=== PATIENT | female | born 1945 | race Two or more races ===

== ENCOUNTER 2016-04-28 06:41 | Emergency (ER) | payer MEDICARE, OTHER ==
[~2016-04-28] VITALS: Ht 162.6 cm; Wt 90.9 kg
[~2016-04-28 06:41] MED LIST: CIPR-198 PO
[2016-04-28 06:44] VITALS: BP 113/73; PULSE 65; RESP 17; O2SAT 95
--- NOTE | 2016-04-28 07:01 | ED.REPORT ---
HPI-General Illness Date of Service Apr 28, 2016 ED Provider: Darnell Zavala MD A 70 year old female presents to the ED complaining of right leg pain that began 3 days ago. Patient describes the pain as "burning". She denies any similar previous episode of pain. Patient was recently diagnosed with influenza 2 days ago and has been taking Tamiflu. Patient recently flew to [place] one week ago. She denies any recent injury, long periods of rest or history of blood clots. Her flu symptoms have improved. She denies any nausea, chest pain, back pain or SOB. Nursing Notes Stated Complaint: RIGHT LEG PAIN Chief Complaint: General Complaint Nursing Notes Reviewed: Yes Allergies: Coded Allergies: No Known Allergies (Unverified Allergy, Unknown, 12/05/13) Scheduled Ciprofloxacin (Ciprofloxacin) 500 Mg Tablet 500 MG PO BID Scheduled PRN Ibuprofen (Ibuprofen) 600 Mg Tablet 600 MG PO QID PRN PRN For Pain General Time Seen by MD: 06:57 Chief Complaint Other (Right leg pain) Hx Obtained From: Patient Arrived By: Walk-in Sudden in Onset?: No Onset Occurred: 3 days ago Symptom Duration: Since onset Location: : Thigh right Quality: Burning Radiation: : Does not radiate Severity: Current: Moderate Severity: Maximum: Moderate Associated with: Denies: Abdominal pain, Chest pain, Nausea, Shortness of breath Pertinent Negative: Pt denies other symptoms Recent Healthcare: No recent hospitalization, Recent doctor visit Past Medical History Past Medical History Pyelonephritis; otherwise healthy Past Surgical History Hysterectomy Smoking History Never Smoker Social History Alcohol Use: Denies alcohol use Other Social History: Good social support, Local resident Ambulatory Status Independent Review of Systems Full Review of Systems Constitutional: Denies: Chills, Fever Respiratory: Denies: Non-productive cough, Shortness of breath Cardiovascular: Denies: Chest pain GI: Denies: Abdominal pain, Nausea, Vomiting Musculoskeletal: Reports: Extremity pain (Right thigh pain), Denies: Back pain Neurologic: Denies: Change LOC Complete sys rev & neg: except as marked. Physical Exam Vital Signs Vital Signs Date Time Temp Pulse Resp B/P Pulse Ox O2 Delivery O2 Flow Rate FiO2 04/28/16 06:44 36.1 65 17 113/73 95 Room Air Initial VS: Reviewed Head / Eyes: Atraumatic, Normocephalic, PERRL Skin: Warm, Dry, No cyanosis Neurologic: Alert, Oriented, Nonfocal Psychiatric: Mood/affect normal, Behavior normal, Normal thought content General/Constitutional: Awake, Alert Respiratory / Chest: Atraumatic, Breath sounds NL, Breath sounds = bilat Cardiovascular: Heart rate NL, Regular rhythm, Heart sounds NL, No murmurs Abdomen: Atraumatic, Soft Back: Atraumatic, Inspection NL, Non-tender Upper Extremities Upper Extremity / MS: Atraumatic, Inspection NL, Neurologic intact, Vascular intact Lower Extremity / Pelvis / MS: Atraumatic, Neurologic intact, Vascular intact Right Thigh: Positive: Tenderness present... (Tender over right lateral thigh ) LOWER EXTREMITITES: Questionable positive straight leg test on the right Interpretation & Diagnostics US LEG Read by Radiology IMPRESSION: No sonographic evidence for right lower extremity deep venous thrombosis. Dictated by: Rodri Carballo M.D. on 04/28/2016 at 9:08 Lab Results Interpretation Test 04/28/16 09:45 Hold Urine Received (Received) Re-Eval/Medical Decision Med Decision/Clinical Course 70 -year-old female recent diagnosis influenza presenting complaining of right thigh pain she reports pain going down the back of her right thigh. Vital signs stable. Ultrasound no DVT. Straight leg raise is positive. Patient with apparent sciatica. No midline back tenderness. No red flag symptoms. Treated with ibuprofen as needed. Return precautions given. Time of Eval: 09:40 Patient Status: Condition improved Re-Evaluation/Progress Note: Patient is rechecked. She is informed of her lab results and US results. All of the patient's questions are addressed. She understands and agrees with the treatment plan. Counseled Regarding: Diagnosis, Lab results, Need for follow-up, When/why to return to ED Discharge & Departure Primary Impression: Sciatica Laterality: unspecified laterality Qualified Code: M54.30 - Sciatica, unspecified side Disposition: Home Discharge Condition All VS Reviewed: Yes Condition: Improved Patient Instructions: Sciatica (ED) Additional Instructions: Thank you for trusting us with your care this morning. Your emergency department results including lab work and ultrasound are reassuring at this time. I believe that you symptoms are likely due to sciatica. Take 1-2 ibuprofen every 6-8 hours as needed for pain. Schedule a follow up appointment with your primary care physician in the next 2- 3 days for a recheck. Please return to the emergency department for any new or worsening conditions including worsening pain, tingling, weakness or swelling in the leg. Referrals: [facility] Scribe Attestation Portions of this note were transcribed by Kylah Valdovinos. I, Dr. Zavala personally performed the history, physical exam and medical decision-making; I reviewed and confirmed the accuracy of the information in the transcribed note. Signed by: Shankar Madrid, 04/28/16 0950. Darnell Zavala MD Apr 28, 2016 07:01 KYLAH VALDOVINOS Apr 28, 2016 08:19
[2016-04-28] MEDS ORDERED: Ketorolac 30 mg/mL 2 mL Inj IM ONE (08:15)
--- NOTE | 2016-04-28 09:11 | DRSVH ---
PROCEDURE: US VEINOUS LEG DUPLEX UNILATERAL, RIGHT INDICATIONS: 70 year-old female with right thigh pain. TECHNIQUE: Real-time imaging, as well as color and pulse Doppler interrogation, were performed of the lower extr emity deep veins from the inguinal ligament to the popliteal fossa. COMPARISON: None. FINDINGS: The deep veins are normally compressible, and free of intraluminal thrombus. Color and pu lse Doppler demonstrate normal phasic intraluminal flow. There is normal augmentation response to di stal compression maneuver. IMPRESSION: No sonographic evidence for right lower extremity deep venous thrombosis. Dictated by: Rodri Carballo M.D. on 04/28/2016 at 9:08 Approved by: Rodri Carballo M.D. on 04/28/2016 at 9:09
[2016-04-28] MEDS ORDERED: IBUP-1827 PO (09:59)
== END 2016-04-28 10:03 | disposition home or self-care (01) ==
LOC: SED 06:41
DX: M54.31 Sciatica, right side (principal); J11.1 Influenza due to unidentified influenza virus with other respiratory manifestations
CPT/HCPCS: 81002; 93971; 96372; 99284; J1885